=== PATIENT | male | born 1990 | race Caucasian/White ===

== ENCOUNTER → 2023-04-20 | Outpatient (CLI) | payer OTHER ==
--- NOTE | 2023-04-20 16:33 | XR ---
EXAMINATION TYPE: XR cervical spine comp DATE OF EXAM: 04/20/2023 4:19 PM CLINICAL INDICATION:Male, 33 years old with history of M542 CERVICALGIA; COMPARISON: None TECHNIQUE: The cervical spine was imaged in frontal, lateral, odontoid and bilateral oblique. FINDINGS: The osseous structures show normal alignment without evidence of an acute fracture. There are minimal osteophytes noted throughout the cervical spine on the anterior and lateral aspects of the vertebral bodies. The intervertebral disk spaces are narrowed at multiple levels. Pedicles are intact. Soft t issues are within normal limits. The odontoid appears intact. IMPRESSION: 1. No fracture or dislocation. 2. Mild degenerative disc disease changes of the cervical spine.
== END | disposition home or self-care (01) ==
LOC: RADXRYALE 15:56
PROVIDERS: ATTEND Physician Assistant Medical
DX: M50.30 Other cervical disc degeneration, unspecified cervical region (principal)
CPT/HCPCS: 72050

== ENCOUNTER → 2023-05-26 | Outpatient (CLI) | payer OTHER ==
--- NOTE | 2023-06-08 06:06 | EM ---
EVENT MONITOR The patient was monitored between the and the May. The baseline rhythm is a sinus mechanism with episode of sinus tachycardia, single PVCs were noted. No atrial fibrillation was noted. No pauses were noted. SHARAN / IJN: [id number] /
== END | disposition home or self-care (01) ==
LOC: RADECHMAIN 07:09
PROVIDERS: ATTEND Family Medicine
DX: I49.3 Ventricular premature depolarization (principal); R00.2 Palpitations; R00.0 Tachycardia, unspecified
CPT/HCPCS: 93270